=== PATIENT | male | born 1970 | race Two or more races ===

== ENCOUNTER 2025-08-13 09:57 | Outpatient (CLI) | payer OTHER | END 2025-08-13 10:08 | disposition home or self-care (01) | LOC: RAD 09:57 | PROVIDERS: ATTEND Physical Medicine & Rehabilitation | DX: M75.52 Bursitis of left shoulder (principal); J40 Bronchitis, not specified as acute or chronic; G58.9 Mononeuropathy, unspecified | CPT/HCPCS: 73218 ==